=== PATIENT | female | born 1990 ===

== ENCOUNTER 2017-06-03 15:55 | Emergency (ER) | payer OTHER ==
[2017-06-03 16:32] VITALS: RESP 20
--- NOTE | 2017-06-03 17:39 | RAD ---
PROCEDURE: Right ring finger radiographs. HISTORY: pain/swelling s/p injury COMPARISON: None available. TECHNIQUE: AP radiograph of the right hand, as well as spot oblique and lateral images of ring finger were obtained. FINDINGS: RIGHT RING FINGER: Comminuted displaced fracture of the proximal aspect of the distal 4th phalanx. Remainder of the right hand (as seen on the AP view) grossly unremarkable. JOINTS: No dislocation. SOFT TISSUES: Soft tissue swelling. No evidence of radiopaque foreign body. OTHER FINDINGS: None. IMPRESSION: Comminuted displaced fracture of the proximal aspect of the distal 4th phalanx. Associated soft tissue swelling.
[2017-06-03 18:07] VITALS: BP 127/86; PULSE 87; TEMP 98.1
[2017-06-03 18:08] VITALS: O2SAT 99
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
== END 2017-06-03 18:15 | disposition home or self-care (01) ==
LOC: C.ER 15:55
DX: S62.634A Displaced fracture of distal phalanx of right ring finger, initial encounter for closed fracture (principal); Y04.2XXA Assault by strike against or bumped into by another person, initial encounter; Y92.9 Unspecified place or not applicable

== ENCOUNTER 2017-06-16 16:01 | Emergency (ER) | payer OTHER ==
--- NOTE | 2017-06-16 16:25 | C.PDOC ---
History Of Present Illness 27 y/o female presents to ED requesting alternate hand surgery referral for right 4th finger fracture on 06/03. Patient was seen at ED for same symptoms and finger splint applied. Patient tried to follow up with hand surgeon referred Dr. Hernandez but office said he is no longer there. Patient has been compliant with wearing splint and states finger looks better. No other complaints at this time. REQUESTING ALTERNATE HAND SURG REFERRAL. SP R 4 FINGER FRACTURE 06/03. SEEN IN ER FOR SAME AND FINGER SPLINT APPLIED. PS TRIED FU W HAND SURG REFERRAL DR HERNANDEZ BUT OFFICE SAID HE IS NO LONGER THERE. HAS BEEN COMPLIANT W WEARING SPLINT. STATES FINGER LOOKS BETTER. EXAM EXT R 4 FINGER IN FINGER SPLINT. MILD ECHYMOSIS, MIN SWELL. NO GROSS DEFORM. GOOD PERFUSION. Time Seen by Provider: 06/16/17 16:15 Chief Complaint (Nursing): Medical Clearance History Per: Patient History/Exam Limitations: no limitations Onset/Duration Of Symptoms: Days Current Symptoms Are (Timing): Still Present Past Medical History Reviewed: Historical Data, Nursing Documentation, Vital Signs Vital Signs: Last Vital Signs Temp 97.8 F 06/16/17 16:34 Pulse 84 06/16/17 16:34 Resp 14 06/16/17 16:34 BP 118/81 06/16/17 16:34 Pulse Ox 98 06/16/17 16:34 - Medical History PMH: Anemia Surgical History: Tonsillectomy Family History: States: No Known Family Hx - Social History Hx Tobacco Use: Yes Hx Alcohol Use: Yes Hx Substance Use: No - Immunization History Hx Tetanus Toxoid Vaccination: No Hx Influenza Vaccination: No Hx Pneumococcal Vaccination: No Review Of Systems Except As Marked, All Systems Reviewed And Found Negative. Constitutional: Negative for: Fever, Chills Cardiovascular: Negative for: Chest Pain Respiratory: Negative for: Shortness of Breath Gastrointestinal: Negative for: Nausea, Vomiting Skin: Negative for: Rash Neurological: Negative for: Weakness, Numbness Physical Exam - Physical Exam Appears: Non-toxic, No Acute Distress Skin: Normal Color, Warm, No Rash Head: Atraumatic, Normacephalic Eye(s): bilateral: Normal Inspection Oral Mucosa: Moist Neck: Supple Chest: Symmetrical Extremity: Capillary Refill (<2 seconds), No Deformity, Swelling (minimal to right 4th finger), Other (Right 4th finger in finger splint, mild ecchymosis, Good perfusion ) Pulses: Left Radial: Normal, Right Radial: Normal Neurological/Psych: Oriented x3, Normal Speech, Normal Motor, Normal Sensation ED Course And Treatment O2 Sat by Pulse Oximetry: 100 (RA) Pulse Ox Interpretation: Normal Disposition Counseled Patient/Family Regarding: Diagnosis, Need For Followup - Disposition Referrals: Aissatou Pleitez MD [Staff Provider] - [facility] [Outside] [facility] [Outside] Disposition: HOME/ ROUTINE Disposition Time: 16:24 Condition: GOOD Additional Instructions: CONTINUE WEARING SPLINT PREVIOUSLY INSTRUCTED. CALL [facility] FOR ADDITIONAL HAND SURGERY REFERRAL INFO OR FOLLOW UP IN CLINIC. Instructions: Finger Fracture (ED) Forms: [facility] (Nepali), Work Excuse - Clinical Impression Clinical Impression: Fracture of distal phalanx of right ring finger - PA / APPLICATION ARCHITECT / Resident Statement MD/DO has examined the patient and agrees with the treatment plan. - Scribe Statement The provider has reviewed the documentation as recorded by the Mandyibfrancoise Zurita All medical record entries made by the Mandyibfrancoise were at my direction and personally dictated by me. I have reviewed the chart and agree that the record accurately reflects my personal performance of the history, physical exam, medical decision making, and the department course for this patient. I have also personally directed, reviewed, and agree with the discharge instructions and disposition.
[2017-06-16 16:35] VITALS: BP 118/81; PULSE 84; RESP 14; TEMP 97.8
[2017-06-16 17:42] VITALS: O2SAT 100
== END 2017-06-16 16:40 | disposition home or self-care (01) ==
LOC: C.ER 16:01
DX: S62.634A Displaced fracture of distal phalanx of right ring finger, initial encounter for closed fracture (principal); X58.XXXA Exposure to other specified factors, initial encounter